=== PATIENT | male | born 1980 | race Caucasian/White ===

== ENCOUNTER 2021-01-27 09:39 | Emergency (ER) | payer SELFPAY ==
[~2021-01-27] VITALS: Ht 187 cm; Wt 77.2 kg
[2021-01-27 10:44] LABS: BASOPHILS % (AUTO) 1 % (0-10); EOSINOPHILS % (AUTO) 1 % (0-10); HEMATOCRIT 47 % (40-54); HEMOGLOBIN 16.5 g/dL (13.3-17.7); LYMPHOCYTES # (AUTO) 0.5 10^3/uL (1.0-4.0); LYMPHOCYTES % (AUTO) 10 % (12-44); MEAN CORPUSCULAR HEMOGLOBIN 36 pg (25-34); MEAN CORPUSCULAR HGB CONC 35 g/dL (32-36); MEAN CORPUSCULAR VOLUME 101 fL (80-99); MEAN PLATELET VOLUME 8.4 fL (9.0-12.2); MONOCYTES # (AUTO) 0.6 10^3/uL (0.0-1.0); MONOCYTES % (AUTO) 12 % (0-12); NEUTROPHILS # (AUTO) 3.7 10^3/uL (1.8-7.8); NEUTROPHILS % (AUTO) 77 % (42-75); PLATELET COUNT 195 10^3/uL (130-400); WHITE BLOOD COUNT 4.8 10^3/uL (4.3-11.0)
[2021-01-27 10:48] LABS: CLARITY,URINE CLEAR; COLOR,URINE ORANGE; GLUCOSE, URINE (UA) NEGATIVE (NEGATIVE); KETONES,URINE 1+ (NEGATIVE); LEUKOCYTE ESTERASE ,URINE NEGATIVE (NEGATIVE); NITRITE,URINE NEGATIVE (NEGATIVE); PH,URINE 8.5 (5-9); PROTEIN,URINE 1+ (NEGATIVE)
[2021-01-27 11:03] LABS: ALBUMIN 4.5 GM/DL (3.2-4.5)
[2021-01-27 11:04] LABS: CHLORIDE 98 MMOL/L (98-107); POTASSIUM 3.6 MMOL/L (3.6-5.0); SODIUM 141 MMOL/L (135-145)
[2021-01-27 11:05] LABS: CALCIUM 9.1 MG/DL (8.5-10.1)
[2021-01-27 11:06] LABS: GLUCOSE 112 MG/DL (70-105); TOTAL PROTEIN 7.7 GM/DL (6.4-8.2)
[2021-01-27 11:07] LABS: AMPHETAMINE SCREEN, URINE NEGATIVE (NEGATIVE); BARBITURATE SCREEN URINE NEGATIVE (NEGATIVE); BENZODIAZEPINES SCREEN URINE NEGATIVE (NEGATIVE); CANNABINOID SCREEN, URINE POSITIVE (NEGATIVE); CARBON DIOXIDE 27 MMOL/L (21-32); COCAINE SCREEN URINE NEGATIVE (NEGATIVE); METHADONE STAT NEGATIVE (NEGATIVE); METHAMPHETAMINE SCREEN URINE S NEGATIVE (NEGATIVE); OPIATE SCREEN URINE NEGATIVE (NEGATIVE); TRICYCLIC ANTIDEPRESSANTS SCRE NEGATIVE (NEGATIVE)
[2021-01-27 11:08] LABS: BILIRUBIN,TOTAL 1.5 MG/DL (0.1-1.0); OXYCODONE STAT NEGATIVE (NEGATIVE); PROPOXYPHENE STAT NEGATIVE (NEGATIVE)
[2021-01-27 11:09] LABS: ALKALINE PHOSPHATASE 43 U/L (40-136)
[2021-01-27 11:10] LABS: CREATININE SERUM 0.84 MG/DL (0.60-1.30); GFR ESTIMATED > 60
[2021-01-27 11:11] LABS: BUN/CREATININE RATIO 5
[2021-01-27 11:12] LABS: BACTERIA,URINE NEGATIVE /HPF; BILIRUBIN,URINE NEGATIVE (NEGATIVE); WBC,URINE RARE /HPF
[2021-01-27 11:13] LABS: ALANINE AMINOTRANSFERASE 57 U/L (0-55); MAGNESIUM 1.4 MG/DL (1.6-2.4)
[2021-01-27] MEDS ORDERED: THIAMINE 100 MG (VITAMIN B-1) TAB PO ONE (11:30)
[2021-01-27] MEDS ORDERED: FOLIC ACID 1 MG TAB PO ONE (11:30)
[2021-01-27] MEDS ORDERED: MAGNESIUM OXIDE (MAG-OX)400 MG TAB PO ONE (11:30)
--- NOTE | 2021-01-27 11:30 | ED General ---
General Chief Complaint: Detox Stated Complaint: ETOH DETOX Nursing Triage Note: AMB TO ROOM WANTS DETOX. LAST TIME HE DRANK WAS LAST NIGHT [place] USUALLY DRINKS 1/2 GALLON DAILY. STATES IS READY FOR HELP MONDAY NIGHT PASSED OUT AND URINATED ON HIMSELF. Source of Information: Patient Exam Limitations: No Limitations History of Present Illness Date Seen by Provider: Jan 27, 2021 Time Seen by Provider: 10:40 Initial Comments Patient to the ER by private conveyance with chief complaint that he would like to detox. 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 He has not done inpatient rehab before but he would like to do it because he did outpatient rehab through [facility] this time last year and felt like he relapsed immediately. For at least the last 6 months he has been drinking this much. He has been drinking since he was 19. He says he has tremors when he stops drinking but has never had seizures. His sister has been calling around looking for an inpatient rehab place and found 1 somewhere in [place] and told him to come to the ER to be medically evaluated and admitted so he can be medically detoxed. The patient states he is ready to quit drinking. His last drink was yesterday evening. Allergies and Home Medications Allergies Uncoded Allergies: TEA (Allergy, Unknown, 01/27/21) Patient Home Medication List Home Medication List Reviewed: Yes Review of Systems Review of Systems Constitutional: No chills, No fever EENTM: No hearing loss, No ear pain Respiratory: No cough, No short of breath Cardiovascular: No chest pain, No palpitations Gastrointestinal: No abdominal pain, No nausea, No vomiting Genitourinary: No discharge, No dysuria Musculoskeletal: No back pain, No joint pain Skin: No pruritus, No rash Psychiatric/Neurological: See HPI, Anxiety All Other Systems Reviewed Negative Unless Noted: Yes Past Pahjyak-Gbkdih-Ipddhc Hx Patient Social History Tobacco Use?: Yes Smoking Status: Current Someday Smoker Use of E-Cig and/or Vaping dev: No Substance use?: No Alcohol Use?: Yes Alcohol type: Other Alcohol Frequency: Daily Pt feels they are or have been: No Immunizations Up To Date Influenza Vaccine Up-to-Date: No; Not Current Physical Exam Vital Signs Vital Signs - First Documented 01/27/21 09:50 Temp 37.2 Pulse 106 Resp 18 B/P (MAP) 128/96 (107) Pulse Ox 97 Capillary Refill : Less Than 3 Seconds Height, Weight, BMI Height: '" Weight: lbs. oz. kg; BMI Method: General Appearance: No Apparent Distress, WD/WN Eyes: Bilateral Eye Normal Inspection, Bilateral Eye PERRL, Bilateral Eye EOMI HEENT: PERRL/EOMI, TMs Normal, Pharynx Normal, Moist Mucous Membranes Neck: Full Range of Motion, Normal Inspection, Non Tender Respiratory: Lungs Clear, Normal Breath Sounds, No Accessory Muscle Use, No Respiratory Distress Cardiovascular: Regular Rate, Rhythm, No Edema, Normal Peripheral Pulses Extremity: Normal Capillary Refill, Normal Inspection, No Pedal Edema Neurologic/Psychiatric: Alert, Oriented x3, Other (mild anxious affect with mild tremor.) Progress/Results/Core Measures Suspected Sepsis SIRS Temperature: Pulse: 106 Respiratory Rate: 18 Laboratory Tests 01/27/21 10:40: White Blood Count 4.8 Blood Pressure 128 /96 Mean: 107 Laboratory Tests 01/27/21 10:40: Creatinine 0.84, Platelet Count 195, Total Bilirubin 1.5H Results/Orders Lab Results Laboratory Tests Test 01/27/21 10:40 Range/Units White Blood Count 4.8 4.3-11.0 10^3/uL Red Blood Count 4.61 4.30-5.52 10^6/uL Hemoglobin 16.5 13.3-17.7 g/dL Hematocrit 47 40-54 % Mean Corpuscular Volume 101 H 80-99 fL Mean Corpuscular Hemoglobin 36 H 25-34 pg Mean Corpuscular Hemoglobin Concent 35 32-36 g/dL Red Cell Distribution Width 11.8 10.0-14.5 % Platelet Count 195 130-400 10^3/uL Mean Platelet Volume 8.4 L 9.0-12.2 fL Immature Granulocyte % (Auto) 0 % Neutrophils (%) (Auto) 77 H 42-75 % Lymphocytes (%) (Auto) 10 L 12-44 % Monocytes (%) (Auto) 12 0-12 % Eosinophils (%) (Auto) 1 0-10 % Basophils (%) (Auto) 1 0-10 % Neutrophils # (Auto) 3.7 1.8-7.8 10^3/uL Lymphocytes # (Auto) 0.5 L 1.0-4.0 10^3/uL Monocytes # (Auto) 0.6 0.0-1.0 10^3/uL Eosinophils # (Auto) 0.0 0.0-0.3 10^3/uL Basophils # (Auto) 0.0 0.0-0.1 10^3/uL Immature Granulocyte # (Auto) 0.0 0.0-0.1 10^3/uL Urine Color ORANGE Urine Clarity CLEAR Urine pH 8.5 5-9 Urine Specific [place] 1.010 L 1.016-1.022 Urine Protein 1+ H NEGATIVE Urine Glucose (UA) NEGATIVE NEGATIVE Urine Ketones 1+ H NEGATIVE Urine Nitrite NEGATIVE NEGATIVE Urine Bilirubin NEGATIVE NEGATIVE Urine Urobilinogen 4.0 < = 1.0 MG/DL Urine Leukocyte Esterase NEGATIVE NEGATIVE Urine RBC (Auto) NEGATIVE NEGATIVE Urine RBC NONE /HPF Urine WBC RARE /HPF Urine Crystals NONE /LPF Urine Bacteria NEGATIVE /HPF Urine Casts NONE /LPF Urine Mucus NEGATIVE /LPF Urine Culture Indicated NO Sodium Level 141 135-145 MMOL/L Potassium Level 3.6 3.6-5.0 MMOL/L Chloride Level 98 98-107 MMOL/L Carbon Dioxide Level 27 21-32 MMOL/L Anion Gap 16 H 5-14 MMOL/L Blood Urea Nitrogen 4 L 7-18 MG/DL Creatinine 0.84 0.60-1.30 MG/DL Estimat Glomerular Filtration Rate > 60 BUN/Creatinine Ratio 5 Glucose Level 112 H 70-105 MG/DL Calcium Level 9.1 8.5-10.1 MG/DL Corrected Calcium 8.7 8.5-10.1 MG/DL Magnesium Level 1.4 L 1.6-2.4 MG/DL Total Bilirubin 1.5 H 0.1-1.0 MG/DL Aspartate Amino Transf (AST/SGOT) 94 H 5-34 U/L Alanine Aminotransferase (ALT/SGPT) 57 H 0-55 U/L Alkaline Phosphatase 43 40-136 U/L Total Protein 7.7 6.4-8.2 GM/DL Albumin 4.5 3.2-4.5 GM/DL Urine Opiates Screen NEGATIVE NEGATIVE Urine Oxycodone Screen NEGATIVE NEGATIVE Urine Methadone Screen NEGATIVE NEGATIVE Urine Propoxyphene Screen NEGATIVE NEGATIVE Urine Barbiturates Screen NEGATIVE NEGATIVE Ur Tricyclic Antidepressants Screen NEGATIVE NEGATIVE Urine Phencyclidine Screen NEGATIVE NEGATIVE Urine Amphetamines Screen NEGATIVE NEGATIVE Urine Methamphetamines Screen NEGATIVE NEGATIVE Urine Benzodiazepines Screen NEGATIVE NEGATIVE Urine Cocaine Screen NEGATIVE NEGATIVE Urine Cannabinoids Screen POSITIVE H NEGATIVE Serum Alcohol < 10 <10 MG/DL My Orders Orders - JON GAYLE Nkechi Cbc With Automated Diff (01/27/21 10:11) Comprehensive Metabolic Panel (01/27/21 10:11) Magnesium (01/27/21 10:11) Alcohol (01/27/21 10:11) Ua Culture If Indicated (01/27/21 10:11) Drug Screen Stat (Urine) (01/27/21 10:11) Magnesium Oxide Tablet (Mag Ox Tablet) (01/27/21 11:30) Thiamine Tablet (Vitamin B-1 Tablet) (01/27/21 11:30) Folic Acid Tablet (Folic Acid Tablet) (01/27/21 11:30) Lorazepam Tablet (Ativan Tablet) (01/27/21 14:08) General/Regular (01/27/21 Lunch) Rx-Lorazepam (Rx-Ativan) (01/27/21 14:52) Medications Given in ED Current Medications Medications Dose Ordered Sig/Linda Route Start Time Stop Time Status Last Admin Dose Admin Folic Acid 1 mg ONCE ONCE PO 01/27/21 11:30 01/27/21 11:31 DC 01/27/21 11:34 1 MG Magnesium Oxide 400 mg ONCE ONCE PO 01/27/21 11:30 01/27/21 11:31 DC 01/27/21 11:34 400 MG Thiamine HCl 100 mg ONCE ONCE PO 01/27/21 11:30 01/27/21 11:31 DC 01/27/21 11:34 100 MG Vital Signs/I&O 01/27/21 09:50 Temp 37.2 Pulse 106 Resp 18 B/P (MAP) 128/96 (107) Pulse Ox 97 Capillary Refill : Less Than 3 Seconds Blood Pressure Mean: 107 Progress Note #1: Time: 14:12 Progress Note Patient's been stable with some anxious affect since he arrived. His labs are okay and he does not require any further IV intervention or inpatient intervention. He wants to go to an inpatient treatment facility. We talked about [facility] but his family wants him to go somewhere in [place]. We asked the patient to give us the name or phone number of the facility so we can call ahead and speak to them about their admission requirements and they said that they are taking care of it through [facility]. We called Dr. Gunn at [facility] and she said she would have her career technology teacher for alcohol withdrawal get a hold of us to help coordinate this. Discussed this with the patient in regard to give him a dose of Ativan and something to eat and see how he feels after that. If he tolerates this then he may be a good candidate for tapering dose of Librium outpatient. Discussed the case with Dr. Chang interventional radiology tech provider for inpatient [facility] and he feels at this time the patient does not meet any inpatient criteria and would recommend outpatient benzo such as Librium. Progress Note #2: Time: 14:35 Progress Note Patient has a visitor Letitia who brought him some lunch. He is eating and took the Ativan and feeling a little better. Sara from [facility] alcohol addiction coordinator called us and says she will reach out to the team and find out what the plan was and see if she can get him some direct help from her in terms of being directed to a inpatient alcohol treatment center. We discussed this plan with the patient and his friend and they are in agreement and he is going to finish his lunch and wait to hear back from any. Progress Note #3: Time: 14:50 Progress Note Sara from [facility] called us back and says she was able to arrange for him to go straight to [facility] today. She would just like us to send him with enough Ativan to get him through the night and Phong will take over a taper in the morning. Patient is in agreement with going to [facility]. Departure Impression Primary Impression: Alcohol abuse Disposition: 01 HOME, SELF-CARE Condition: Stable Departure-Patient Inst. Decision time for Depature: 14:51 Referrals: NO,LOCAL PHYSICIAN (PCP/Family) Primary Care Physician Patient Instructions: Alcohol Abuse and Alcoholism (DC) Add. Discharge Instructions: Ativan 1/2 mg every 4 hours as necessary for agitation, tremors, withdrawal symptoms. Go from the ER directly over to [facility] and they are waiting for you. [facility] [address] [place] [address] All discharge instructions reviewed with patient and/or family. Voiced understanding. JON GAYLE Jan 27, 2021 11:30
[2021-01-27] MEDS ORDERED: LORazepam 0.5 MG (ATIVAN) TABLET PO STA (14:08)
[2021-01-27] MEDS ORDERED: RX-LORAZEPAM (ATIVAN) 0.5 MG TAB PPK#4 PO STA (14:52)
[2021-01-27 15:07] VITALS: BP 138/100
== END 2021-01-27 15:08 | disposition home or self-care (01) ==
LOC: ER 09:43
DX: F10.10 Alcohol abuse, uncomplicated (principal); F17.200 Nicotine dependence, unspecified, uncomplicated; Y90.0 Blood alcohol level of less than 20 mg/100 ml
CPT/HCPCS: 80053; 80306; 81000; 83735; 85025; 99283; G0480; 36415; 80320